=== PATIENT | male | born 1975 | race Caucasian/White ===

== ENCOUNTER 2016-03-30 14:49 | Emergency (ER) | payer OTHER ==
[2016-03-30 14:54] VITALS: BP 148/85
[2016-03-30] MEDS ORDERED: Ketorolac INJ* 60 MG/2 ML VIAL IM ONE (16:23)
--- NOTE | 2016-03-30 16:23 | ED ---
Back Pain - HPI Summary HPI Summary: Patient presents with midline lower back pain after injury at work 3 days ago. He states he was lifting something heavy when he heard a "pop" and has been unable to straighten his back since. He has chronic back pain and has been seen in the ED several times for this complaint although pain has always been bilateral. Today however he notes a different type of pain sensation of sharp midline tenderness as well as inability to stand straight, twist or extend back fully at the hips. Denies bladder or bowel dysfunction. Denies numbness or tingling. He has not tried any medications for relief. Pain does not radiate, but patient experiences feelings of intermittent sciatica at baseline. - History of Current Complaint Chief Complaint: EDBackInjuryPain Stated Complaint: BACK INJURY Time Seen by Provider: 03/30/16 15:55 Hx Obtained From: Patient Onset/Duration: Sudden Onset Onset/Duration: Started Days Ago Timing: Constant Back Pain Location: Is Discrete @ - midline lower back pain at L4-L5 Severity Initially: Moderate Severity Currently: Moderate Pain Intensity: 9 Pain Scale Used: 0-10 Numeric Aggravating Symptom(s): Movement Alleviating Symptom(s): Position - Risk Factors Cauda Equina Risk Factors: Negative Epidural Abscess Risk Factors: Negative - Allergies/Home Medications Allergies/Adverse Reactions: Allergies Allergy/AdvReac Type Severity Reaction Status Date / Time No Known Allergies Allergy Verified 03/30/16 14:51 PMH/Surg Hx/FS Hx/Imm Hx Previously Healthy: Yes Endocrine/Hematology History: Denies: Hx Diabetes Cardiovascular History: Denies: Hx Angina, Hx Congestive Heart Failure, Hx Coronary Artery Disease, Hx Hypercholesterolemia, Hx Hypertension, Hx Myocardial Infarction, Hx Valvular Heart Disease Respiratory History: Reports: Hx Seasonal Allergies Denies: Hx Asthma, Hx Chronic Obstructive Pulmonary Disease (COPD) GI History: Reports: Hx Gastroesophageal Reflux Disease Musculoskeletal History: Reports: Hx Back Problems Psychiatric History: Reports: Hx Anxiety, Hx Depression, Hx Post Traumatic Stress Disorder, Hx Inpatient Treatment, Hx Community Mental Health Tx, Hx Suicide Attempt, Hx Substance Abuse, Other Psychiatric Issues/Disorders - suicidal ideation Denies: Hx Eating Disorder, Hx of Violent Episodes Against Others - Surgical History Surgery Procedure, Year, and Place: Hernia repair in childhood - Immunization History Date of Tetanus Vaccine: reports up to date Date of Influenza Vaccine: never Infectious Disease History: No Infectious Disease History: Denies: Traveled Outside the [place] in Last 30 Days - Family History Known Family History: Positive: None - denies heart disease/dm/depression Negative: Diabetes - Social History Alcohol Use: quit six years ago Substance Use Type: Reports: Marijuana Substance Use Comment - Amount & Last Used: pt reports hx of other drug use Hx Tobacco Use: No Smoking Status (MU): Former Smoker Type: Cigarettes Have You Smoked in the Last Year: Yes Review of Systems Constitutional: Negative Cardiovascular: Negative Respiratory: Negative Gastrointestinal: Negative Genitourinary: Negative Positive: no symptoms reported, see HPI Positive: Arthralgia, Myalgia, Decreased ROM - decreased range of motion at hip flexion, hip rotation Skin: Negative Neurological: Negative Positive: Anxious All Other Systems Reviewed And Are Negative: Yes Physical Exam Triage Information Reviewed: Yes Vital Signs On Initial Exam: Initial Vitals Temp Pulse Resp BP Pulse Ox 97.9 F 70 16 148/85 99 03/30/16 14:51 03/30/16 14:51 03/30/16 14:51 03/30/16 14:51 03/30/16 14:51 Vital Signs Reviewed: Yes Appearance: Positive: Well-Appearing, No Pain Distress, Well-Nourished Skin: Positive: Warm, Skin Color Reflects Adequate Perfusion Head/Face: Positive: Normal Head/Face Inspection, Temporal Artery Tenderness Eyes: Positive: EOMI ENT: Positive: Hearing grossly normal Neck: Positive: Supple Respiratory/Lung Sounds: Positive: Clear to Auscultation, Breath Sounds Present Cardiovascular: Positive: Normal Musculoskeletal: Positive: Limited @ - Straight leg test positive. Flip test positive. Pain at L4 L5 pain on palpation. Unable to extend at hips. Unable to rotate at hips. Neurological: Positive: Normal, Sensory/Motor Intact Psychiatric: Positive: Normal Diagnostics - Vital Signs Vital Signs Temp Pulse Resp BP Pulse Ox 03/30/16 14:51 97.9 F 70 16 148/85 99 - Laboratory Lab Statement: Any lab studies that have been ordered have been reviewed, and results considered in the medical decision making process. - Radiology No standard instances Xray Interpretation: No Acute Changes Radiology Interpretation Completed By: Radiologist Back Pain Course/Dx - Course Course Of Treatment: Patient was evaluated for acute back injury with no associated saddle anesthesia, or B/B dysfunction. Patient sent to xray d/t onset of new pain unlike previous visits. Xray read as negative, no acute findings. patient encouraged to follow up with physician for further evaluation of chronic back pain. Educated patient on duration of typical back injuries/pain. Encouraged not to rest but to remain as active as tolerated. - Diagnoses Differential Diagnosis/HQI/PQRI: Positive: Herniated Disc, Osteoporosis, Strain , Sprain Provider Diagnoses: Back pain Discharge - Discharge Plan Condition: Stable Disposition: HOME Patient Education Materials: Low Back Strain (ED), Lower Back Exercises (ED) Referrals: No Primary Care Phys,NOPCP [Primary Care Provider] - Additional Instructions: Follow up with your PCP. Moist heat to the area. Tylenol for pain. May take up to 6 weeks for pain to resolve. Come back to ED for worsening pain or symptoms not controlled.
--- NOTE | 2016-03-30 17:59 | RAD ---
Indication: Back pain. 5 views of lumbar spine demonstrates vertebral bodies to be normal in height. Disc spaces all well-preserved. Pedicles appear intact. IMPRESSION: Unremarkable lumbosacral spine series.
== END 2016-03-30 18:30 | disposition home or self-care (01) ==
LOC: ED 14:49
DX: M54.5 Low back pain (principal); Z87.891 Personal history of nicotine dependence; F41.9 Anxiety disorder, unspecified
CPT/HCPCS: 72110; 96372; 99281; J1885

== ENCOUNTER → 2018-09-15 13:31 | Emergency (ER) | payer OTHER ==
--- OUTSIDE RECORDS SUMMARY | 2018-09-15 14:31 | XMS REPORT | Continuity of Care Document ---
:1975 External Reference #:[id number] Author Name Belgicayahir Janina Care Team Providers Name Role Phone Liss Marquez MD Primary Care Physician Unavailable Payers Date Identification Numbers Payment Provider Subscriber Policy Number: [id number] Mikie Kaplan PayID: [id number] [address] [place] [address] Problems Active Problems Provider Date Depressive disorder Nery Schmitt M.D. Onset: 11/21/2013 Opioid abuse Nery Schmitt M.D. 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 Smoking Status Reviewed: 09/10/18 1/2 pack daily Patient has cut down to 1/2 pack for the last 2 weeks. ETOH Use alcohol abuse stopped 2010 due to issues with law /incarceration in 2008 Recreational Drug Use opioid abuse off of streets ( has been in inpatient rehab multiple times ) never IVDA Tobacco Use Start: Unknown Patient is a current smoker, smokes every day Exercise Type/Frequency Walks daily Allergies, Adverse Reactions, Alerts Description No Known Drug Allergies Medications Active Medications SIG Qnty Indications Ordering Date Provider Prilosec 1 by mouth twice 30caps Unknown 20mg Capsules DR a day Loratadine 1 by mouth every Unknown 10mg Tablets day Suboxone Dissolve 1 Film Unknown 8-2mg Film Under The Tongue Two Times Daily as Needed Duloxetine HCL Take 1 Capsule By Unknown 30mg Caps Mouth Every Day DR Arianna For 1 Week, And If Tolerated Increase To Take 2Capsules By Mouth Every Day Clonazepam Take 1 Tablet By Unknown 1mg Tablets Mouth Three Times Daily as Needed Methadone HCL one by mouth Unknown 10mg three times a day Tablets as needed for pain Acetaminophen ER Unknown History Medications Paroxetine HCL once a day 30tabs 311 Nery Schmitt, 08/05/2013 - 40mg M.D. 06/24/2018 Tablets Hydroxyzine HCL 1 tab by mouth 30tabs 300.09 Nery Schmitt, 08/05/2013 - 25mg every day as M.D. 06/24/2018 Tablets needed for anxiety Paxil 1 by mouth every 30tabs Unknown - 20mg Tablets day 06/26/2018 Glucosamine 1 by mouth every Unknown - Chondroitin 1500 day 06/24/2018 Complex 1500Com Capsules Fish Oil Ultra 1 by mouth twice 60caps Unknown - 1000mg a day 06/24/2018 Capsules Immunizations CPT Code Status Date Vaccine Lot # [id number] Given 08/05/2013 Tdap - Tetanus/Diptheria/Acellular Pertussis [id number] Vital Signs Date Vital Result Comment 09/10/2018 1:37pm Height 69.25 inches 5'9.25" Weight 188.00 lb Heart Rate 68 /min BP Systolic Sitting 122 mmHg Left arm/reg cuff BP Diastolic Sitting 80 mmHg Left arm/reg cuff Respiratory Rate 16 /min O2 % BldC Oximetry 94 % room air BMI (Body Mass Index) 27.6 kg/m2 06/25/2018 8:06am Height 69.25 inches 5'9.25" Weight 188.25 lb Heart Rate 54 /min BP Systolic Sitting 112 mmHg Lue regular cuff BP Diastolic Sitting 72 mmHg Lue regular cuff Respiratory Rate 16 /min O2 % BldC Oximetry 96 % BMI (Body Mass Index) 27.6 kg/m2 06/15/2018 7:31am Height 69.25 inches 5'9.25" Weight 179.25 lb Heart Rate 64 /min BP Systolic Sitting 118 mmHg Lue regular cuff BP Diastolic Sitting 68 mmHg Lue regular cuff Respiratory Rate 12 /min O2 % BldC Oximetry 93 % BMI (Body Mass Index) 26.3 kg/m2 Neck Circumference in inches 15 08/05/2013 1:09pm Height 69.25 inches 5'9.25" Weight 208.00 lb Heart Rate 74 /min BP Systolic Sitting 112 mmHg BP Diastolic Sitting 68 mmHg O2 % BldC Oximetry 96 % BMI (Body Mass Index) 30.5 kg/m2 Results Test Date Facility Test Result H/L Range Note Laboratory test 06/22/2018 [facility] Point of Care 91 mg/dL N 70-100 [address] [place] [address] [phone] Leukemia/Lymphom 06/22/2018 [facility] Path Interpretation tnp a Flow [address] 2-8 Marker [place], [place] [id number] [phone] Path Interpret 9-15 Marker (SEE NOTE) 2 Path Interpret > 16 Marker tnp Laboratory test 06/22/2018 [facility] Cytology Non-Senior It Architect SEE RESULT [address] BELOW [place], [place] [id number] [phone] Laboratory test 06/22/2018 [facility] Pathology See Comment [address] Miscellaneous Test [place], [place] [id number] [phone] Platelet Count 06/22/2018 [facility] Platelet Count 212 10^3/uL N 150-[address] [place] [address] [phone] Mean Platelet Volume 7.9 fL N 7.4-10.4 Inr/Protime 06/22/2018 [facility] Inr 1.08 N 0.82-1.[address] [place] [address] [phone] Laboratory test 06/22/2018 [facility] Partial Thrombo 34.2 N 26.0-36.[address] Time PTT seconds [place], [place] [id number] [phone] Lipid Profile 11/18/2013 [facility] Triglycerides 183 mg/dL N 6, 7 (Trig/Chol/HDL) [address] [place], [place] [id number] [phone] Cholesterol 224 mg/dL N 8 HDL Cholesterol 36.0 mg/dL N 9 LDL Cholesterol 151 mg/dL N 10 Laboratory test 11/18/2013 [facility] TSH (Thyroid 0.61 N 0.34 -5.60 [address] Stimulating IU/[place] [address] Horm) [phone] Comp Metabolic 11/18/2013 [facility] Sodium 138 N 133-[address] mmol/[place] [address] [phone] Potassium 4.7 mmol/L N 3.7-5.6 Chloride 105 mmol/L N 101-111 Co2 Carbon Dioxide 29 mmol/L N 22-32 Anion Gap 4 mmol/L N 2-11 Glucose 98 mg/dL N 70-100 Blood Urea Nitrogen 16 mg/dL N 6-24 Creatinine 1.05 mg/dL N 0.67-1.17 BUN/Creatinine Ratio 15.2 N 8-20 Calcium 9.6 mg/dL N 8.6-10.3 Total Protein 7.2 g/dL N 6.4-8.9 Albumin 4.5 g/dL N 3.2-5.2 Globulin 2.7 g/dL N 2-4 Albumin/Globulin Ratio 1.7 N 1-3 Total Bilirubin 0.60 mg/dL N 0.2-1.0 Alkaline Phosphatase 65 U/L N 34-104 Alt 14 U/L N 7-52 Ast 16 U/L N 13-39 Egfr Non- 79.9 N >60 Egfr 102.8 N >60 12 Laboratory test 11/18/2013 [facility] Vitamin B12 490 pg/mL N 180-914 [address] [place] [address] [phone] CBC Auto Diff 11/18/2013 [facility] White Blood 8.5 10^3/uL N 4.8-10.[address] [place] [address] [phone] Red Blood Count 5.27 10^6/uL N 4.0-5.4 Hemoglobin 16.2 g/dL N 14.0-18.0 Hematocrit 47 % N 42-52 Mean Corpuscular Volume 89 fL N 80-94 Mean Corpuscular Hemoglobin 31 pg N 27-31 Mean Corpuscular HGB Conc 35 g/dL N 31-36 Red Cell Distribution Width 13 % N 10.5-15 Platelet Count 200 10^3/uL N 150-450 Mean Platelet Volume 9 um3 N 7.4-10.4 Abs Neutrophils 5.3 10^3/uL N 1.5-7.7 Abs Lymphocytes 2.4 10^3/uL N 1.0-4.8 Abs Monocytes 0.6 10^3/uL N 0-0.8 Abs Eosinophils 0.2 10^3/uL N 0-0.6 Abs Basophils 0.1 10^3/uL N 0-0.2 Abs Nucleated RBC 0.03 10^3/uL N Granulocyte % 62.2 % N 38-83 Lymphocyte % 27.9 % N 25-47 Monocyte % 7.3 % N 1-9 Eosinophil % 1.8 % N 0-6 Basophil % 0.8 % N 0-2 Nucleated Red Blood Cells % 0.3 N 1 Retail Delivery Driver: [id number] 2 FINAL DIAGNOSIS: Specimen Source: Mediastinal mass ([id number]) Flow cytometry immunophenotypic analysis: No evidence of an immunophenotypically abnormal cell population. Interpretative data: Lymphocytes: 92% of gated events B-cells: 7% of lymphs; kappa:lambda within normal limits T-cells/NK cells: No aberrant population detected. Markers tested: CD3, CD5, CD7, CD10, CD19, CD20, CD23, CD45, kappa surface light chains, lambda surface light chains, 7-AAD. Quality Assessment: Acceptable Viability: Acceptable Viable lymphocytes (7-AAD): 100% Specimen received within validated guidelines. A Nascimento-Giemsa stained slide prepared from the flow cytometry specimen was examined for quality purposes. Electronically signed by: Liss Ayala MD 06/24/18 7047 Technical component performed by: [place] [address] [employer] T[employer] Net: Dewayne Quiñones II, MD, PhD. 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 COMMENT: Slides show a neoplastic proliferation of spindled cells with tapered nuclear contours, wavy nuclear borders, and wispy fibrillar cytoplasm. Nuclear features are bland. Mitotic figures are infrequent. There is no evidence of necrosis. In some areas there is vague Verocay body formation. Immunohistochemical stains, with appropriately reacting controls, were performed with the following results: S100 negative Repeat S100 negative Pankeratin negative CD45 negative Vimentin positive BCL 2 positive CD34 predominantly negative SOX 10 negative Ki67 proliferation index 5%, quantitated manually NSE negative The findings are not specific for type of spindle cell CONTINUED ON NEXT PAGE DEPARTMENT OF PATHOLOGY, [address] [place] [address] Ulises Blackburn M.D. Director NAV # [id number] RUN DATE: 07/09/18 [facility] LAB LIVE PAGE 2 Patient: DEWAYNE KAPLAN [id number] (Continued) SPECIMEN COMMENTS (Continued) neoplasm but largely rule out solitary fibrous tumor, synovial sarcoma, schwannoma, lymphoma, and melanoma. 1. MEDIASTINUM - US GUIDED MEDIAL STINAL FINE NEEDLE ASPIRATION CLINICAL HISTORY 5.8 x 7.6 x 8.1 cm anterior mediastinal mass. Smoker IMMEDIATE INTERPRETATION Pass 1, 2, 3 -inadequate. Pass 4 thru 5-adequate. GROSS DESCRIPTION Ultrasound guided, fine needle aspiration x 5 passes with 5 alcohol fixed slide(s), 2 needle rinses in formalin for cell blocks labeled [id number] and [id number] CORE and The specimen is sent to [place], [place] for flow cytometry on . SPECIAL STUDIES Flow cytometry has been performed at [facility], [place], [place]. The testing reveals: FINAL DIAGNOSIS: Specimen Source: Mediastinal mass ([id number]) Flow cytometry immunophenotypic analysis: No evidence of an immunophenotypically abnormal cell population. Interpretative data: Lymphocytes: 92% of gated events B-cells: 7% of lymphs; kappa:lambda within normal limits T-cells/NK cells: No aberrant population detected. Markers tested: CD3, CD5, CD7, CD10, CD19, CD20, CD23, CD45, kappa surface light chains, lambda surface light chains, 7-AAD. Quality Assessment: Acceptable CONTINUED ON NEXT PAGE DEPARTMENT OF PATHOLOGY, [address] [place] [address] Ulises Blackburn M.D. Director [facility] # [id number] RUN DATE: 07/09/18 [facility] LAB LIVE PAGE 3 Patient: DEWAYNE KAPLAN [id number] (Continued) SPECIAL STUDIES (Continued) SPECIAL STUDIES (Continued) Viability: Acceptable Viable lymphocytes (7-AAD): 100% Specimen received within validated guidelines. A Nascimento-Giemsa stained slide prepared from the flow cytometry specimen was examined for quality purposes. Electronically signed by: Liss Ayala MD 06/24/18 8288 Technical component performed by: [place] [address] [employer] Net: Dewayne Quiñones II, MD, PhD. SS18, Synovial Sarcoma, FISH, Ts has been performed at [place], [place]. The testing reveals: Received: 26 Jun 2018 15:29 Reported: 01 Jul 2018 17:02 Result Summary: Negative Interpretation No rearrangement of the SS18 gene region was observed. This result does not exclude the diagnosis of synovial sarcoma. Clinical and pathologic correlation is recommended. Result:nuc yessy(SS18x2)[100] Abnormality Cutoff(%) CONTINUED ON NEXT PAGE DEPARTMENT OF PATHOLOGY, [address] [place] [address] Ulises Blackburn M.D. Director [facility] # [id number] RUN DATE: 07/09/18 [facility] LAB LIVE PAGE 4 Patient: DEWAYNE KAPLAN [id number] (Continued) SPECIAL STUDIES (Continued) SPECIAL STUDIES (Continued) 18q11.2(SS18 sep) <10.0 Reason for Referral: soft tissue tumor Specimen: Tissue, Paraffin Source: mediastinal Tissue ID: [id number] Method Locus and probes [Strategy;#Nuclei;Class] 18q11.2(3'SS18,5'SS18) [BAP;100;ASR] Probe strategy includes: BAP=break-apart probe. Disclaimer Analyte Specific Reagent (ASR). This test was developed using an analyte specific reagent. Its performance characteristics were determined by [facility] in a manner consistent with CLIA requirements. It has not been cleared or approved by the U.S. Food and Drug Administration. This test is intended to be used as an adjunct to existing clinical and pathologic information currently used for the differential diagnosis of synovial sarcoma. This FISH test does not rule out other chromosome abnormalities. Released By Vinicio Ruiz M.D. Signed by and Reported on: Liss Ayala MD 07/09/18 1525 END OF REPORT DEPARTMENT OF PATHOLOGY, [address] [place] [address] Ulises Blackburn M.D. Director [facility] # [id number] 4 Test Result Flag Unit RefValue SS18, Synovial Sarcoma, FISH, Ts Result Summary Negative Interpretation See Comment No rearrangement of the SS18 gene region was observed. This result does not exclude the diagnosis of synovial sarcoma. Clinical and pathologic correlation is recommended. Result See Comment nuc yessy(SS18x2)[100] Abnormality Cutoff(%) 18q11.2(SS18 sep) <10.0 Reason for Referral soft tissue tumor Specimen Tissue, Paraffin Source mediastinal Tissue ID [id number] Method See Comment Locus and probes [Strategy;#Nuclei;Class] 18q11.2(3'SS18,5'SS18) [BAP;100;ASR] Probe strategy includes: BAP=break-apart probe. Disclaimer See Comment Analyte Specific Reagent (ASR). This test was developed using an analyte specific reagent. Its performance characteristics were determined by [facility] in a manner consistent with CLIA requirements. It has not been cleared or approved by the U.S. Food and Drug Administration. This test is intended to be used as an adjunct to existing clinical and pathologic information currently used for the differential diagnosis of synovial sarcoma. This FISH test does not rule out other chromosome abnormalities. Released By See Comment RESULT: Vinicio Ruiz M.D. Test Performed by: [address] [address] 5 Standard intensity warfarin therapeutic range: 2.0-3.0 High intensity warfarin therapeutic range: 2.5-3.5 6 FASTING 7 Desirable <150 Borderline high 150-199 High 200-499 Very High >500 8 Desirable <200 Borderline high 200-239 High >239 9 Low <40 Desirable: 40-60 High: >60 10 Desirable <100 Near Optimal 100-129 Borderline high 130-159 High 160-189 Very High >189 11 FASTING 12 Because ethnic data is not always readily available, this report includes an eGFR for both -Americans and non- Americans. The National Kidney Disease Education Program (NKDEP) does not endorse the use of the MDRD equation for patients that are not between the ages of 18 and 70, are , have extremes of body size, muscle mass, or nutritional status, or are non- or non-. According to the National Kidney Foundation, irrespective of diagnosis, the stage of the disease is based on the level of kidney function: Stage Description GFR(mL/min/1.73 m(2)) 1 Kidney damage with normal or decreased GFR 90 2 Kidney damage with mild decrease in GFR 60-89 3 Moderate decrease in GFR 30-59 4 Severe decrease in GFR 15-29 5 Kidney failure <15 (or dialysis) 13 Normal Range 180 to 914 Indeterminate Range 145 to 180 Deficient Range <145 Procedures Date Code Description Status 08/13/2018 80197 Diffusing Capacity Completed 08/13/2018 89772 Plethysmography Determination Lung Volumes & Per Airway Completed Resist 08/13/2018 59136 Pulmonary Function><Bronchodil Completed 06/22/2018 83054 EKG, Interpretation Only Completed 01/26/2016 55360 EKG, Interpretation Only Completed 01/25/2016 03751 EKG, Interpretation Only Completed 03/07/2015 47338 ECHO Transthorasic Realtime 2D W Doppler & Color Flow Hosp Completed 03/07/2015 24770 Treadmill Interp/Report Only Completed 03/07/2015 30611 Stress Test Supervsn W/Out I/R Completed 03/07/2015 48582 EKG, Interpretation Only Completed 03/06/2015 46028 EKG, Interpretation Only Completed Encounters Type Date Location Provider Dx Diagnosis Office Visit 06/25/2018 [facility] Ely Tello J98.59 Other diseases of 8:15a [facility], not [employer] Developer elsewhere classified F17.210 Nicotine dependence, cigarettes, uncomplicated Office Visit 06/15/2018 8:00a [facility] And Ely J98.59 Other diseases of [facility] earnest Tello, not [employer] Developer elsewhere classified F17.210 Nicotine dependence, cigarettes, uncomplicated Office 01/27/2016 [facility] T48.204A Poisoning by Visit 3:07p alfredo Beth PA un[facility] Hospitalists acting on muscles, undet, init F33.2 Major depressv disorder, recurrent severe w/o psych features Office Visit 01/26/2016 [facility] Mumtaz Coy T48.204A Poisoning by 3:06p alfredo Beth M.D.,FACP unsp drugs Hospitalists acting on muscles, undet, init 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 General Medical Routine AT Health Care Facility 305.51 Opioid Abuse Continuous 311 Depressive Disorder Not Elsewhere Spec V77.91 Screening For Lipoid Disorders 300.09 Anxiety States Other 305.1 Tobacco Use Disorder 780.79 Malaise And Fatigue Other V06.1 Iartevbmsn-Arrrpup-Yyiqrmwn Combined (DTaP) Plan of Treatment Future Appointment(s):03/15/2019 10:30 am - Ely Tello MD at [facility]09/10/2018 - Ely Tello MDJ98.59 Other diseases of mediastinum, not elsewhere classifiedFollow up:6 months , PFTs umpukL06.210 Nicotine dependence, cigarettes, uncomplicated
[2018-09-15 15:33] VITALS: BP 159/88
== END | disposition left against medical advice (07) ==
LOC: ED 13:31
DX: F11.23 Opioid dependence with withdrawal (principal); Z53.21 Procedure and treatment not carried out due to patient leaving prior to being seen by health care provider
CPT/HCPCS: 99281

== ENCOUNTER 2019-02-19 11:38 | Day surgery (SDC) | payer OTHER ==
[~2019-02-19 11:38] MED LIST: Acetaminophen TAB* 325 MG PO ONE; Buffered Lidocaine 1% SYRIN* 1 ML/SYRINGE INTRADERM ONE; Lactated Ringers 1000 ML Bag* 1,000 ML IV SCH
[2019-02-19] MEDS ORDERED: Acetaminophen TAB* 325 MG ONE (12:27)
[2019-02-19] MEDS ORDERED: Buffered Lidocaine 1% SYRIN* 1 ML/SYRINGE INTRADERM ONE (12:27)
[2019-02-19] MEDS ORDERED: fentaNYL* 50 MCG/ML 5 ML VIAL (250 MCG VIAL) ONE (13:39)
[2019-02-19] MEDS ORDERED: Midazolam* 1 MG/ML 2 ML VIAL (2 MG) ONE (13:40)
[2019-02-19] MEDS ORDERED: Lidocaine 2% PF * 5 ML VIAL ONE (13:40)
[2019-02-19] MEDS ORDERED: Propofol* 10 MG/ML 20 ML BTL ONE ×2 (13:40→14:45)
[2019-02-19] MEDS ORDERED: Rocuronium* 10 MG/ML VIAL ONE (13:40)
[2019-02-19] MEDS ORDERED: Naloxone* 0.4 MG/ML 1 ML VIAL IV PRN (14:26)
[2019-02-19] MEDS ORDERED: fentaNYL* 50 MCG/ML 2 ML VIAL (100 MCG VIAL) IV PRN (14:26)
[2019-02-19] MEDS ORDERED: PROCHLORPERAZINE INJ 5 MG/ML 2 ML VIAL IV PRN (14:26)
[2019-02-19] MEDS ORDERED: Ondansetron INJ* 2 MG/ML VIAL IV PRN (14:26)
[2019-02-19] MEDS ORDERED: diPHENhydraMINE IV* 50 MG/ML 1 ml VIAL (BENADRYL) IV PRN (14:26)
[2019-02-19] MEDS ORDERED: oxyCODONE TAB* 5 MG TAB PO PRN (14:26)
[2019-02-19] MEDS ORDERED: Benzocaine/Butamben/Tetracain (CETACAINE - SINGLE USE) 5 gm TOPICAL ONE (15:00)
[2019-02-19] MEDS ORDERED: Lidocaine 2% JELLY* 6 ML JELLY TOPICAL ONE (15:01)
[2019-02-19] MEDS ORDERED: Lidocaine 2% PF* 10 ML AMP ONE (15:04)
[2019-02-19] MEDS ORDERED: Ketorolac INJ* 30 MG/ML 1 ML VIAL ONE (15:33)
[2019-02-19] MEDS ORDERED: Glycopyrrolate IV* 0.2 MG/ML 1 ML VIAL ONE (15:38)
[2019-02-19] MEDS ORDERED: Neostigmine Methylsulfate* 3 MG/3 ML SYRINGE ONE (15:41)
--- NOTE | 2019-02-19 16:07 | BRIEFOPN ---
Brief Operative/Procedure Note - Operation Details Pre-Op Diagnosis: Hemoptysis Post-Op Diagnosis: Hemoptysis Procedures: Bronchoscopy and BAL Surgeon(s)/Proceduralists: Elisha Anesthesia: GA Estimated Blood Loss: none Findings: No bleeding, no endobronchial lesions Specimen(s)/Culture(s) Description: BAL for micro,cytology Complications: None
[2019-02-19 17:14] VITALS: BP 135/90
--- NOTE | 2019-02-19 22:04 | PRO ---
BRONCHOSCOPY REPORT: DATE OF PROCEDURE: 02/19/19 PROCEDURE PERFORMED: Bronchoscopy with endobronchial bronchoscopy and bronchoalveolar lavage. PREPROCEDURAL DIAGNOSIS: Hemoptysis. ANESTHESIA: General anesthesia. DESCRIPTION OF PROCEDURE: Informed consent was obtained from the patient prior to the procedure after all the risks and benefits were thoroughly explained. 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 The patient presented with hemoptysis recently. The patient was intubated with size 8.0 endotracheal tube. A flexible Olympus bronchoscope was inserted through ET tube for airway inspection. No endobronchial lesions were noted. Thin secretions were noted on both sides and were suctioned. There is some narrowing of airways in the left lower lobe which were also bleeding to suction; however, no endobronchial lesions were noted. No active bleeding or trace of old blood was noted. Bronchoalveolar lavage was obtained from the left lower lobe. Specimen was sent for cytology and microbiology. The patient tolerated the procedure well. The patient was extubated and seen in Recovery in optimal condition. [id number]/CPS #: [id number] MTDD
== END 2019-02-19 16:30 | disposition home or self-care (01) ==
LOC: OR 11:38
PROVIDERS: ATTEND Internal Medicine
DX: R04.2 Hemoptysis (principal); R06.02 Shortness of breath; F17.210 Nicotine dependence, cigarettes, uncomplicated; J98.59 Other diseases of mediastinum, not elsewhere classified; F41.8 Other specified anxiety disorders; K21.9 Gastro-esophageal reflux disease without esophagitis
CPT/HCPCS: 87070; 87077; 87116; 87205; 87206; A9270-GY; J1885; J2001; J2250; J2704; J2710; J3010

== ENCOUNTER 2019-04-23 09:16 | Day surgery (SDC) | payer OTHER ==
[~2019-04-23 09:16] MED LIST changes: -Acetaminophen TAB* 325 MG PO ONE
[2019-04-23] MEDS ORDERED: Naloxone* 0.4 MG/ML 1 ML VIAL IV PRN (10:17)
[2019-04-23] MEDS ORDERED: Dexamethasone IV* 4 MG/ML 1 ML (4 MG) ONE (11:15)
[2019-04-23] MEDS ORDERED: Lidocaine 2% PF * 5 ML VIAL ONE (11:16)
[2019-04-23] MEDS ORDERED: Propofol* 500 MG/50 ML BTL ONE (11:16)
[2019-04-23] MEDS ORDERED: Propofol* 10 MG/ML 20 ML BTL ONE ×4 (11:31→12:02)
[2019-04-23 13:04] VITALS: BP 132/81
--- NOTE | 2019-04-25 20:41 | PRO ---
CC: Dr. Liss Marquez * DATE OF PROCEDURE: 04/23/19 [facility] PROCEDURE: EGD with biopsy. REFERRING PROVIDER: Dr. Liss Marquez. INDICATION: The patient has refractory GERD and chronic intermittent abdominal pain. History of peptic ulcer disease. MEDICATIONS GIVEN: By Anesthesia. DESCRIPTION OF PROCEDURE: Full disclosure of risks was reviewed with the patient as detailed on the consent form. The patient was placed in the left lateral decubitus position and monitored with continuous pulse oximetry, capnography, interval blood pressure monitoring, and direct observation. A bite -block was placed between the patient's teeth. An adult gastroscope was then inserted into the patient's mouth and advanced down the esophagus, into the stomach, and into the distal duodenum. Findings and interventions are described below. FINDINGS: Esophagus was a normal tubular structure without rings or strictures. GE junction occurred at 40 cm. GE junction appeared regular. Scope was then advanced into the stomach. In the proximal gastric body, there was white adherent material, which was initially thought to be mucus. This area was inspected in closer detail. The water jet was used to try to dislodge this material, as was the suction. I ultimately put the biopsy forceps down and tried to pull away some of this material. It does appear that there is a shaggy base underneath the area consistent with ulceration. Suspect that the adherent material was therefore exudate. I was not able to see the entire base of the polyp as I was beginning to see some oozing of blood from the areas where the biopsy forceps had scraped the mucosa. There was a similar appearing area of exudate that would not dislodge from the surface nearby. Appearance therefore consistent with 2 ulcers. In the proximal gastric body, there was also a 4 to 6 mm polyp, which was biopsied. In the gastric antrum, there was utoq-xo-uszpxhnq erythema with some old flecks of blood seen attached to the mucosa. No ulcers in this area. Retroflexion demonstrated a laxity around the gastroscope consistent with Hill grade C valve. Scope was then advanced into the duodenum to at least the third portion. Duodenal mucosa was normal in appearance. Biopsies were obtained for histologic evaluation. Scope was then withdrawn back into the stomach. Biopsy was obtained from the antrum for CLOtest. Scope was then withdrawn from the patient. The patient tolerated the procedure well and was recovered in the GI recovery area. IMPRESSION: 1. Complete upper endoscopy to the distal duodenum. 2. Two areas with adherent exudate, mostly likely represent ulcers. 3. Antral gastritis. FOLLOWUP: 1. Await pathology. 2. We would increase PPI to b.i.d. dosing. It seems that the patient is on omeprazole 40 mg daily. 3. We will schedule followup in clinic as well as a repeat EGD in 2 months to ensure the ulcers have resolved. Thank you very much for this referral. [id number]/[facility] #: [id number] DEAN
--- NOTE | 2019-04-25 20:58 | PRO ---
CC: Dr. Liss Marquez * DATE OF PROCEDURE: 04/23/19 - [facility] PROCEDURE: Colonoscopy with jumbo biopsy polypectomy x2. REFERRING PROVIDER: Dr. Liss Marquez. INDICATION: The patient had been seen in clinic recently with complaints of intermittent abdominal pain, mild constipation, and rectal bleeding. Family history of Crohn's. MEDICATIONS GIVEN: By Anesthesia. DESCRIPTION OF PROCEDURE: Full disclosure of risks was reviewed with the patient as detailed on the consent form. The patient was placed in the left lateral decubitus position and monitored with continuous pulse oximetry, capnography, interval blood pressure monitoring, and direct observation. After anorectal examination was performed, the adult colonoscope was inserted into the rectum and slowly advanced forward. There was significant amount of dark grainy stool seen throughout the colon requiring extensive washing and suctioning. Ultimately, views of the colonic mucosa were adequate to assess for [id number] polyps. Possible that small polyp might have been missed in this level of prep. Scope was able to advance to the terminal ileum. Photodocumentation of landmarks obtained. Careful inspection was made as the colonoscope was withdrawn. Retroflexion was performed in the rectum. Findings and interventions are described below. FINDINGS: Anorectal exam was unremarkable. No large external hemorrhoids. Scope was inserted into the rectum and slowly advanced forward. Once in the cecum, the terminal ileum was briefly intubated. Ileal mucosa was normal in appearance. Scope was then withdrawn back throughout the length of the colon. There was a large amount of residual liquid requiring extensive washing and suctioning as discussed above. There was difficulty in properly distending the colon particularly on the right colon and transverse colon. I repeatedly had to examine these areas and use water immersion technique at various points to ensure that I was able to adequately see the mucosa. Various troubleshooting was performed by the team to determine the cause of this. Ultimately, while in the sigmoid colon, I withdrew the scope. I then inserted another adult colonoscope into the patient's rectum and slowly advanced forward to the level of the descending colon. This scope was better able to distend the colon suggesting that the prior issues were related to scope malfunction. Scope was then slowly withdrawn. In the rectum, there were 2 polyps, which were hyperplastic appearing. These polyps were 2 to 3 mm and removed with jumbo biopsy forceps. There was no diverticulosis. No colitis. Retroflexion in the rectum revealed [id number] sized internal hemorrhoids. Scope was then withdrawn from the patient. The patient tolerated the procedure well and was recovered in the GI recovery area. IMPRESSION: 1. Complete colonoscopy to the terminal ileum. Fair prep. 2. Two tiny polyps, removed from the rectum. 3. Internal hemorrhoids. Most likely source of rectal bleeding. FOLLOWUP: 1. Await pathology. 2. Repeat colonoscopy in 5 years if polyps are adenomatous. Otherwise, I would recommend repeating colonoscopy at age 52 with an extended prep. 3. Recommend conservative management for hemorrhoids. The patient should contact clinic if bleeding persists, at which point we could consider referral to Surgery for the hemorrhoids. Thank you very much for this referral. [id number]/CPS #: [id number] DEAN
== END 2019-04-23 13:40 | disposition home or self-care (01) ==
LOC: OR 09:16
PROVIDERS: ATTEND Internal Medicine Gastroenterology
DX: R10.9 Unspecified abdominal pain (principal); K29.70 Gastritis, unspecified, without bleeding; K59.00 Constipation, unspecified; K62.5 Hemorrhage of anus and rectum; K63.5 Polyp of colon; K31.7 Polyp of stomach and duodenum
CPT/HCPCS: 87077; 88305; 88342; J1100; J2704